=== PATIENT | female | born 1945 | race Two or more races ===

== ENCOUNTER 2017-01-03 15:04 | Inpatient (IN) | payer OTHER ==
--- NOTE | ~2017-01-03 | EKG ---
PATIENT: MITCHELL IYER UNIT #: [id number] Ventricular Rate: 111 BPM Atrial Rate: 111 BPM P-R Interval: 184 ms QRS Duration: 84 ms Q-T Interval: 316 ms QTC Calculation(Bezet): 429 ms P Holloway: 60 degrees Calculated R Holloway: -38 degrees Calculated T Holloway: 64 degrees Diagnosis Line: Sinus tachycardia Diagnosis Line: Left axis deviation Diagnosis Line: Otherwise normal ECG Diagnosis Line: No previous ECGs available Diagnosis Line: Confirmed by FAMILIA FOX MD ([id number]) on 01/04/2017 Diagnosis Line: 3:31:07 PM INTERPRETING MD: DOMINIQUE MONTANA
--- NOTE | ~2017-01-03 | HP ---
Unit #: [id number] #: [id number] Patient: MITCHELL IYER [id number] [address] [place], [place] [address] [id number] I MR#: [id number] NAME: MITCHELL IYER ROOM: 23231 Age: 72 Sex: F Admission Date: 01/03/2017 : 1945 Attending Physician: Cesario Bee M.D. HISTORY AND PHYSICAL CHIEF COMPLAINT Shortness of breath. HISTORY OF PRESENT ILLNESS The patient is a 72-year-old female with a history of asthma and questionable heart disease brought to the emergency room complaining of shortness of breath. The patient has been short of breath for the last three days associated with a nonproductive cough. The patient also complains of headache. She denies any nausea or vomiting. The patient was found to be hypoxic with respiratory distress at 80% on room air. The patient is saturating 98% on three liters of nasal cannula. The patient had a chest x-ray that shows an infiltrate in the left lateral and the right lower lobe and is being admitted for pneumonia. The patient speak Johan, and the history is limited. History is obtained by speaking to the ER physician and the anodize machine operator done by the ER physician. PAST MEDICAL HISTORY Asthma. PAST SURGICAL HISTORY None. HOME MEDICATIONS None. Patient moved from [place], [place], and prior to that the patient was on medications. ALLERGIES No known drug allergies. SOCIAL HISTORY No history of smoking, alcohol, or any illicit drug abuse. Patient has been in the [place] for the last seven days. No recent travel history. FAMILY HISTORY Reviewed and none. PHYSICAL EXAMINATION GENERAL: Patient is lying in bed not in acute distress. VITAL SIGNS: Temperature 99.3, pulse 115, respirations 17, blood pressure 145/76, and saturating 98% on 3 liters of nasal cannula. HEENT: Head atraumatic, normocephalic. Pupils equal, round, and reactive to light and accommodation. Extraocular movements are intact. NECK: Supple. LUNGS: Decreased air entry at the bases. Positive for rales and rhonchi. Unit #: [id number] #: [id number] Patient: MITCHELL IYER HEART: (1) rhythm, tachycardic. ABDOMEN: Soft. Positive bowel sounds. EXTREMITIES: No cyanosis, no clubbing. NEUROLOGIC: Alert, awake, and oriented. No gross focal motor deficit. DIAGNOSTIC STUDIES LABORATORY: Urinalysis shows negative leukocyte esterase and negative nitrites. Sodium 127, potassium 3.4, chloride 93, bicarb 26, glucose 108, BUN 11, creatinine 0.9, calcium 7.9, and alkaline phosphatase 96. Lactic acid 0.9. WBC 11.2, hemoglobin 13.1, hematocrit 40, and platelets 403,000. IMAGING: Chest x-ray shows infiltrate or atelectasis at the right lower lobe, left lateral lobe infiltrate, and pulmonary edema. CARDIOLOGY: EKG shows sinus tachycardia at a rate of 111 beats per minute and left axis deviation with a QTc of 429. ASSESSMENT 1. Pneumonia. 2. Hypoxia. 3. Hyponatremia. 4. Hypokalemia. 5. Pulmonary edema. PLAN Admit the patient to inpatient with telemetry. Patient will receive IV antibiotics with Rocephin and Zithromax. Patient will get dialysis with Lasix 40 mg IV daily. Check the BNP and sputum cultures, and repeat the CBC and BMP in the morning. Will have the ABG, echocardiogram, and troponin as not done. Further recommendations will follow as more lab results are available. Dictated by Matty West TD: 01/03/2017 20:53 JOB #: [id number] HISTORY AND PHYSICAL Page 1 of 1 X KUMAR PEÑA MD X HISTORY AND PHYSICAL
--- NOTE | ~2017-01-03 | CT57 ---
[facility] A Service of [facility] & [facility] RADIOLOGY TEXT RESULTS PATIENT: MITCHELL IYER LOCATION: [facility] - : 43 UNIT #: [id number] AGE: [address]: Redd Olvera MD SEX: F ORDER DR: [id number] [facility] [address]. [place], [place] [address] [id number] I MR#: [id number] Acc #: [id number] NAME: MITCHELL IYER : 1945 SEX: F STUDY DATE/TIME: 01/05/2017 8:34 UNIT: [address] ROOM: [facility] STUDY DESCRIPTION: CT Chest Wo Cont Attending Physician: Redd Olvera M.D. Ordering Physician: Redd Olvera M.D. Primary Care Physician: Generic Doctor Not In System MEDICAL IMAGING REPORT This report is preliminary unless electronic signature is present EXAM CT chest without contrast HISTORY Shortness of air and cough for [address] exam was performed with one or more of the following radiation dose reduction techniques: automatic exposure control, adjustment of mA and/or kV according to patient size, and iterative reconstruction. FINDINGS CT chest without contrast is compared to chest x-ray 01/03/2017. There is increased dense consolidation in the posterior left upper lobe and in the lingula as compared to the prior chest x-ray, and there is probably stable moderately dense atelectasis or infiltrate in the inferior right lower lobe. Exam sensitivity is limited by motion. Moderately severe elevation of the right hemidiaphragm corresponds to finding on chest x-ray. Small calcified bilateral hilar nodes and lower mediastinal calcified nodes. IMPRESSION 1. Progressive dense consolidation in the posterior left upper lobe and in the lingula as compared to chest x-ray 01/03/2017. Although nonspecific this could be due to progressive pneumonia. Continued short-term radiographic followup is recommended after appropriate assessment and treatment. 2. Moderate atelectasis or infiltrate in the inferior right lower lobe is similar to the prior chest x-ray. 3. Moderately severe elevation of the right hemidiaphragm. 4. No pleural effusions or adenopathy. 5. Sensitivity is limited by motion. [facility] A Service of [facility] & [facility] RADIOLOGY TEXT RESULTS PATIENT: MITCHELL IYER LOCATION: [facility] 303-01 : [birth year] UNIT #: [id number] AGE: [address]: Redd Olvera MD SEX: F ORDER DR: Dictated by... Tello Bonilla M.D. THIS IS AN ELECTRONICALLY VERIFIED REPORT Tello Bonilla M.D. at 01/06/2017 1:59 PM DFCande/smiley TD: 01/05/2017 22:03 JOB #: [id number] MEDICAL IMAGING REPORT Page 1 of 1 COPY
--- NOTE | ~2017-01-03 | A ---
[facility] Nutrition Therapy DATE: 01/04/17 Patient: MITCHELL IYER Physician: KEVYN Address: [address] [place] [address] Room/Bed: [address] [place] [address], Zip: [place] [address] Admit Date: 01/03/17 Date of : [birth year] Height: 5 0 Weight: 134 61.1 NUTRITIONAL ASSESSMENT: REASON: 5 NUTRITION RISK PT RE: WEIGHT LOSS, ALSO CONSULT RE: WEIGHT LOSS PT IS 62 Y.O. FEMALE ADMITTED FOR PNE PMH: ASTHMA, ?HEART DISEASE Anthropometrics: 5'0", WT: 136# (BEDSIDE) (62 KG), BMI: 26.6 Labs: CA+:8.1, GFR: 49.4, NA+:133 Meds: NACL I/O & Bowel function: 490/1000 Skin Integrity: NO KNOWN SKIN ISSUES Estimated Nutrition Needs: INCREASED NEEDS 2' WEIGHT LOSS NOTED + CURRENT CLINICAL CONDITION Assessment: CHART REVIEWED AND EVENTS NOTED. PT SEEN FOR 5 NUTRITION RISK PT RE: WEIGHT LOSS, ALSO CONSULT RECEIVED. PT SPEAKS MODE, RD WAS ABLE TO COMMUNICATE W/ GRANDSON WHO ALSO SPEAKS GABONESE. MARK REPORTS PT'S PO INTAKE AND APPETITE HAS BEEN FAIR/NORMAL PRIOR TO ADMIT. ALSO REPORTED IS PT LOSING ~50# PAST 3-4 MONTHS? 2' HAVING PHYSICAL THERAPY ON SHOULDER. GRANDMARK ADDS PT'S UBW IS ~180#. THIS RD ENCOURAGED ADEQUATE KCAL, PROTEIN AND FLUID INTAKE, PT AGREED TO ENSURE SHAKE + ENSURE PUDDING DAILY. PT REPORTED NO DIET QUESTIONS AT THIS TIME. RD TO FOLLOW. PER RN AND CHART, ?PLANS IN PLACE FOR PT TO D/C HOME 01/05/17. Dx: RECENT UNINTENTIONAL WEIGHT LOSS R/T PHYSICAL THERAPY PER ELVIS AEB ~50# WEIGHT LOSS IN PAST 3-4 MONTHS?. 2. ALTERED NUTRIENT UTILIZATION R/T PMH AEB NEED FOR THERAPEUTIC DIET ORDER. Intervention: 1. HEALTHY HEART DIET 2. RD CONSULT 3. ENSURE SHAKE + ENSURE PUDDING DAILY Monitoring, Evaluation and Goals: 1. ORAL INTAKE; CONSUME/TOLERATE >50% OF MEALS AND SUPPLEMENTS 2. WEIGHTS; PREVENT FURTHER UNINTENTIONAL WEIGHT LOSS 3. LABS; WNL MONITOR: [facility] Nutrition Therapy DATE: 01/04/17 Patient: MITCHELL IYER Physician: KEVYN Address: [address] [facility] Room/Bed: [address] [place] [address], Zip: [place] [address] Admit Date: 01/03/17 Date of : [birth year] Height: 5 0 Weight: 134 61.1 -PO INTAKE/APPETITE -WEIGHTS -SUPPLEMENT INTAKE Recommendations: 1. PLEASE ORDER VANILLA ENSURE SHAKE W/LUNCH + VANILLA ENSURE PUDDING W/DINNER MEAL DAILY 2. CONTINUE CURRENT DIET ORDER ABOVE 2' PMH 3. ENCOURAGE PO AND SUPPLEMENT INTAKE 4. CONSIDER ADDING MVI W/MINERAL DAILY RD WILL F/U PER PROTOCOL PT IS MILDLY COMPROMISED Respectfully, EM WINTER MS, RD, LD [facility] Psychiatric cc: client file
--- NOTE | ~2017-01-03 | DS ---
Unit #: [id number] #: [id number] Patient: MITCHELL IYER [id number] [address] [place], [place] [address] [id number] I MR#: [id number] NAME: MITCHELL IYER ROOM: 303 Age: 72 Sex: F Admission Date: 01/03/2017 : 1945 Discharge Date: 01/08/2017 Attending Physician: Redd Olvera M.D. Primary Care Physician: Generic Doctor Not In System DISCHARGE SUMMARY REASON FOR ADMISSION Shortness of breath. HISTORY OF PRESENT ILLNESS/HOSPITAL COURSE The patient is a 72-year-old female, originally from [facility], who recently moved to the [facility] several weeks ago, who presented accompanied by family members secondary to difficulty with breathing, nonproductive cough for the past several days. She was noted to be acutely hypoxic in the emergency room at approximately 80% on room air. Subsequently, she was placed on 3 L O2 nasal cannula and subsequently placed on telemetry floor. Initially, she was diagnosed as acute hypoxic respiratory failure as well as asthma exacerbation, although the patient stated that she did not take any medications prior to day of admission. She was seen and evaluated while on telemetry floor. She underwent routine laboratory studies including blood cultures, which did not yield any acute bacterial growth. Initial urinalysis was also negative. Chest x-ray initially showed no acute process but secondary to acute hypoxia, this prompted a CT chest to be done on 01/05/2017. CT chest showed progressive dense consolidation in the posterior left upper lobe as well as moderate atelectasis versus infiltrate in the inferior right lower lobe. Secondary to infiltrate possibly in the right lower lobe consideration for underlying aspiration was made. This prompted a Speech Therapy consultation. Speech Therapy recommended dental soft diet with thin liquids. This was appropriately discussed with the patient via farebox repairer as well as family members. The patient was gradually weaned off O2. She did have persistent hypoxia, but eventually she was weaned to room air. Secondary to morbid obesity as well as dyspnea, the patient underwent 2D echocardiogram, which did show grade 1 diastolic dysfunction as well as moderate pulmonary hypertension. Secondary to pulmonary hypertension, this prompted a consultation to Dr. Olmos and associates, who did recommend outpatient evaluation for sleep apnea. They also recommended an outpatient CT chest to ensure resolution of left upper lobe as well as right lower lobe pneumonia. At this point in time, the patient will be prescribed for Levaquin, Unit #: [id number] #: [id number] Patient: MITCHELL IYER prednisone, as well as albuterol. She will be discharged home. Family members told me the patient has a new family physician to which they will follow up within 7 to 10 days. Overall, her prognosis depends on her ability to comply. It should be noted while she was here in the hospital that on numerous occasions, she removed her oxygen and stated that she was fine without it. Also note that the patient's hemoglobin A1c was 6.2% and therefore she likely represents borderline type 2 diabetes. She will be discharged on no medications at the present time, but long-term evaluation and/or care will be deferred to primary care physician. At this point in time, the patient is medically stable for discharge. Another O2 evaluation will be done prior to discharge and assuming that is similar to previous, the patient will be discharged home in stable condition. FINAL DISCHARGE DIAGNOSES 1. Acute hypoxic respiratory failure. 2. Questionable asthma exacerbation, details are unclear. 3. Left upper lobe pneumonia. 4. Right lower lobe pneumonia versus atelectasis. 5. Dysphagia. 6. Type 2 diabetes with hemoglobin A1c of 6.2%. 7. Pulmonary hypertension. 8. Likely obstructive sleep apnea with outpatient evaluation pending. 9. Anemia. Baseline hemoglobin is between 10 to 11 likely representing chronic iron deficiency. FINAL DISCHARGE MEDICATIONS Levaquin 750 mg p.o. daily x10 days. Prednisone 40 mg p.o. daily x5 days. Albuterol MDI 1 to 2 puffs q.6 p.r.n. DISCHARGE CONDITION Stable. DISCHARGE DISPOSITION Home. Dictated by... Redd Olvera M.D. ANAND/joshua TD: 01/10/2017 08:18 JOB #: [id number] DISCHARGE SUMMARY Page 1 of 1 X Redd Olvera MD DISCHARGE SUMMARY
--- NOTE | ~2017-01-03 | CR72 ---
[facility] A Service of [facility] & [facility] RADIOLOGY TEXT RESULTS PATIENT: MITCHELL IYER LOCATION: [facility] 303- : 43 UNIT #: [id number] AGE: [address]: Redd Olvera MD SEX: F ORDER DR: [id number] [facility] [address] [facility]. [place], [place] [address] [id number] I MR#: [id number] Acc #: [id number] NAME: MITCHELL IYER : 1945 SEX: F STUDY DATE/TIME: 01/03/2017 17:06 UNIT: [address] ROOM: [facility] STUDY DESCRIPTION: CR Chest Single View Portable Attending Physician: Redd Olvera M.D. Ordering Physician: Cesario Bee M.D. Primary Care Physician: Generic Doctor Not In System MEDICAL IMAGING REPORT This report is preliminary unless electronic signature is present EXAM Portable chest 01/03/2017 HISTORY Cough, shortness breath and headache for 3 days, asthma. FINDINGS There is no prior chest radiograph for comparison. Heart is normal in size. There is elevation right hemidiaphragm with infiltrate or atelectasis right lower lobe. Ill-defined infiltrate left lower lobe laterally. Mild pulmonary edema. No pneumothorax. Dictated by... Ilya Lawton M.D. THIS IS AN ELECTRONICALLY VERIFIED REPORT Ilya Lawton M.D. at 01/05/2017 6:18 AM KRT/to TD: 01/04/2017 12:46 JOB #: [id number] MEDICAL IMAGING REPORT Page 1 of 1 COPY
--- NOTE | ~2017-01-03 | CO ---
Unit #: [id number] #: [id number] Patient: MITCHELL IYER [id number] [address] [address] [id number] I MR#: [id number] NAME: MITCHELL IYER ROOM: 303 Age: 72 Sex: F Admission Date: 01/03/2017 : 1945 Attending Physician: Redd Olvera M.D. Primary Care Physician: Generic Doctor Not In System CONSULTATION REPORT INDICATION FOR CONSULT Pneumonia and pulmonary hypertension. HISTORY OF PRESENT ILLNESS The patient presented to the hospital with several days of increasing shortness of breath and productive cough. She was found to be hypoxic on admission requiring supplemental oxygen to keep saturation greater than 90% and was admitted to the hospital for further management. Workup during her inpatient stay demonstrated a CT showing a left lower lobe pneumonia and an echo with an RVSP of 51. She reports subjective improvement in her breathing since admission, but still has a productive cough. At home prior to admission, she reports excessive daytime sleepiness. PAST MEDICAL HISTORY Positive for asthma. MEDICATIONS The patient was on no home medications prior to admission. She is currently on inpatient antibiotics include Rocephin and azithromycin. ALLERGIES No known drug allergies. SOCIAL HISTORY Negative for tobacco abuse. FAMILY HISTORY Noncontributory. PHYSICAL EXAMINATION VITAL SIGNS: Temperature 98.9, respirations 18, blood pressure 173/95, saturations 95% on supplemental O2, pulse 108. GENERAL: The patient is resting comfortably, in no acute distress, in hospital bed on supplemental nasal oxygen. HEENT: Pupils are equal and reactive to light stimulus. Extraocular motion intact. Conjunctivae normal. Oral mucosa, pink and moist without lesion. Tongue midline without deviation or protrusion. NECK: Trachea midline. No cervical or supraclavicular adenopathy. LUNGS: Diffuse wheezes and scattered rhonchi bilaterally. No accessory muscle use with respirations. CARDIAC: Regular rhythm. S1, S2 auscultated without murmur. ABDOMEN: Soft, nontender, nondistended. Positive bowel sounds. No hepatomegaly. Unit #: [id number] #: [id number] Patient: MITCHELL IYER EXTREMITIES: Moves all 4 extremities with good strength and tone. No cyanosis, clubbing, or edema. Distal pulses intact. SKIN: Cool and dry. PSYCHIATRIC: Calm affect. DIAGNOSTIC STUDIES IMAGING STUDIES: CT was personally visualized, it shows left lower lobe pneumonia. CARDIOVASCULAR STUDIES: Echo showed EF of 55%. RVSP of 51. LABORATORY RESULTS: BMP within normal limits with the exception of glucose of 118 and calcium 7.5. CBC showed white count 17, hematocrit 33, platelets 429. IMPRESSION 1. Acute hypoxic respiratory failure. 2. Pneumonia. 3. Pulmonary hypertension. PLAN To continue O2 wean as tolerated. Continue aggressive pulmonary toilet. Continue steroids. Continue bronchodilators. Continue DVT prophylaxis. Continue antibiotics complete course. She will need a repeat CT as an outpatient to document clearance of her pneumonia. With regard to her pulmonary hypertension, we would consider repeating her echo once she has recovered from the pneumonia. The pulmonary hypertension may represent just acute hypoxic response to her pneumonia and we would consider an outpatient PSG. Dictated by... Marcus Fuentes M.D. CARLI/joshua TD: 01/10/2017 02:36 JOB #: [id number] CONSULTATION REPORT Page 1 of 1 X Marcus Fuentes MD X CONSULTATION REPORT
[2017-01-03 17:28] LABS: BASOPHIL% 0.3 % (0-2.5); EOSINOPHIL# 0.1 X10e3 (0-0.7); EOSINOPHIL% 0.9 % (0.0-7.0); HEMOGLOBIN 13.1 gm/dL (12.0-16.0); LYMPHOCYTE% 17.6 % (17.0-45.0); MEAN CELL VOLUME 89.4 FL (83-96); MEAN CORPUSCULAR HEMOGLOBIN 29.3 PG (28-34); MEAN CORPUSCULAR HGB CONC 32.8 g/dL (30-36); NEUTROPHIL# 8.1 X10e3 (1.5-7.1); NEUTROPHIL% 72.2 % (40-75); PLATELET COUNT 403 X10e3 (140-420); RED BLOOD COUNT 4.48 X10e (3.90-5.30); RED CELL DISTRIBUTION WIDTH 13.2 % (11.0-15.5); WHITE BLOOD COUNT 11.2 X10e3 (4.0-10.5)
[2017-01-03 17:34] LABS: DIFF IND NO
[2017-01-03 17:42] LABS: URINE SOURCE CLEAN CATCH
[2017-01-03 17:43] LABS: ALBUMIN SERUM 3.7 g/dL (3.5-5.0); BILIRUBIN, DIRECT 0.2 mg/dL (0.0-0.2); BILIRUBIN,TOTAL 1.2 mg/dL (0.2-2.0); BUN/CREATININE RATIO 12.22; CALCIUM SERUM 7.9 mg/dL (8.4-10.2); CREATININE SERUM 0.9 mg/dL (0.6-1.4); POTASSIUM 3.4 mmol/L (3.5-5.1); PROTEIN TOTAL SERUM 7.7 g/dL (6.0-8.3)
[2017-01-03 17:51] LABS: URINE APPEARANCE CLEAR; URINE BILIRUBIN NEG (NEG); URINE BLOOD NEG (NEG); URINE COLOR YELLOW; URINE GLUCOSE NEG (NEG); URINE KETONE NEG (NEG); URINE LEUKOCYTE ESTERASE NEG (NEG); URINE NITRATE NEG (NEG); URINE PH 7.5 (5-8); URINE PROTEIN NEG (NEG); URINE SPECIFIC GRAVITY 1.009 (1.003-1.035)
[2017-01-03 17:59] LABS: CULTURE INDICATED? NO
[2017-01-03 19:52] LABS: ARTERIAL BLD GAS O2 SATURATION 92.4 % (90.0-100.0); ARTERIAL BLOOD GAS CARBOXY HB 0.9 %sat (0.0-9.0); ARTERIAL BLOOD GAS HCO3 24.7 mmol/L; ARTERIAL BLOOD GAS MET HB 0.8 %sat (0.0-2.0); ARTERIAL BLOOD GAS PCO2 39.7 mmHg (35.0-45.0); ARTERIAL BLOOD GAS pH 7.402 (7.350-7.450)
[2017-01-03 19:53] LABS: ARTERIAL BLOOD GAS ART SITE LEFT BRACHIAL; ARTERIAL BLOOD GAS DELIVERY NASAL CANNULA; ARTERIAL BLOOD GAS PO2 68.1 mmHg (80.0-100); ARTERIAL DRAW? YES
[2017-01-04 08:46] LABS: BASOPHIL% 0.5 % (0-2.5); EOSINOPHIL# 0.1 X10e3 (0-0.7); EOSINOPHIL% 1.3 % (0.0-7.0); HEMATOCRIT 38.9 % (35.0-45.0); HEMOGLOBIN 12.9 gm/dL (12.0-16.0); LYMPHOCYTE# 1.2 X10e3 (1.0-3.5); LYMPHOCYTE% 11.3 % (17.0-45.0); MEAN CELL VOLUME 89.3 FL (83-96); MEAN CORPUSCULAR HEMOGLOBIN 29.6 PG (28-34); MEAN CORPUSCULAR HGB CONC 33.2 g/dL (30-36); MEAN PLATELET VOLUME 6.7 FL (6.5-11.5); MONOCYTE% 9.3 % (3.0-12.0); NEUTROPHIL% 77.6 % (40-75); PLATELET COUNT 390 X10e3 (140-420); RED BLOOD COUNT 4.35 X10e (3.90-5.30); RED CELL DISTRIBUTION WIDTH 13.6 % (11.0-15.5); WHITE BLOOD COUNT 10.3 X10e3 (4.0-10.5)
[2017-01-04 08:52] LABS: DIFF IND NO
[2017-01-04 09:17] LABS: CALCIUM SERUM 8.1 mg/dL (8.4-10.2); CREATININE SERUM 1.1 mg/dL (0.6-1.4); GLOM FILT RATE Estimated 49.4 mL/min (>60); MAGNESIUM 1.6 mg/dL (1.6-3.0)
[2017-01-05 05:39] LABS: BASOPHIL# 0.1 X10e3 (0-0.3); BASOPHIL% 0.8 % (0-2.5); EOSINOPHIL# 0.2 X10e3 (0-0.7); EOSINOPHIL% 3.2 % (0.0-7.0); HEMATOCRIT 35.5 % (35.0-45.0); HEMOGLOBIN 11.6 gm/dL (12.0-16.0); LYMPHOCYTE# 1.7 X10e3 (1.0-3.5); LYMPHOCYTE% 26.7 % (17.0-45.0); MEAN CELL VOLUME 90.1 FL (83-96); MEAN CORPUSCULAR HEMOGLOBIN 29.3 PG (28-34); MEAN CORPUSCULAR HGB CONC 32.5 g/dL (30-36); MEAN PLATELET VOLUME 7.3 FL (6.5-11.5); MONOCYTE# 0.8 X10e3 (0-1.0); MONOCYTE% 11.7 % (3.0-12.0); NEUTROPHIL# 3.7 X10e3 (1.5-7.1); NEUTROPHIL% 57.6 % (40-75); PLATELET COUNT 372 X10e3 (140-420); RED BLOOD COUNT 3.94 X10e (3.90-5.30); RED CELL DISTRIBUTION WIDTH 13.5 % (11.0-15.5); WHITE BLOOD COUNT 6.5 X10e3 (4.0-10.5)
[2017-01-05 05:47] LABS: DIFF IND NO
[2017-01-05 06:29] LABS: BUN/CREATININE RATIO 15.55; CALCIUM SERUM 7.7 mg/dL (8.4-10.2); CREATININE SERUM 0.9 mg/dL (0.6-1.4); POTASSIUM 3.6 mmol/L (3.5-5.1)
[2017-01-06 06:01] LABS: HEMATOCRIT 36.7 % (35.0-45.0); MEAN CELL VOLUME 89.5 FL (83-96); MEAN CORPUSCULAR HEMOGLOBIN 29.2 PG (28-34); MEAN CORPUSCULAR HGB CONC 32.7 g/dL (30-36); RED BLOOD COUNT 4.1 X10e (3.90-5.30); RED CELL DISTRIBUTION WIDTH 13.4 % (11.0-15.5)
[2017-01-06 06:16] LABS: WHITE BLOOD COUNT 12.4 X10e3 (4.0-10.5)
[2017-01-06 06:48] LABS: BUN/CREATININE RATIO 11.11; CALCIUM SERUM 8.2 mg/dL (8.4-10.2); CREATININE SERUM 0.9 mg/dL (0.6-1.4); POTASSIUM 3.2 mmol/L (3.5-5.1)
[2017-01-07 06:27] LABS: HEMATOCRIT 33.5 % (35.0-45.0); HEMOGLOBIN 10.7 gm/dL (12.0-16.0); MEAN CELL VOLUME 89.2 FL (83-96); MEAN CORPUSCULAR HEMOGLOBIN 28.6 PG (28-34); MEAN CORPUSCULAR HGB CONC 32.1 g/dL (30-36); RED BLOOD COUNT 3.75 X10e (3.90-5.30); RED CELL DISTRIBUTION WIDTH 13.7 % (11.0-15.5)
[2017-01-07 06:30] LABS: WHITE BLOOD COUNT 21.1 X10e3 (4.0-10.5)
[2017-01-07 07:24] LABS: BUN/CREATININE RATIO 16.66; CREATININE SERUM 0.6 mg/dL (0.6-1.4); GLOM FILT RATE Estimated 89.8 mL/min (>60); MAGNESIUM 2.7 mg/dL (1.6-3.0); POTASSIUM 3.9 mmol/L (3.5-5.1)
[2017-01-08 06:44] LABS: HEMATOCRIT 33.3 % (35.0-45.0); HEMOGLOBIN 10.9 gm/dL (12.0-16.0); MEAN CELL VOLUME 89.4 FL (83-96); MEAN CORPUSCULAR HEMOGLOBIN 29.1 PG (28-34); MEAN CORPUSCULAR HGB CONC 32.6 g/dL (30-36); MEAN PLATELET VOLUME 7.1 FL (6.5-11.5); RED BLOOD COUNT 3.73 X10e (3.90-5.30); RED CELL DISTRIBUTION WIDTH 13.9 % (11.0-15.5); WHITE BLOOD COUNT 17.4 X10e3 (4.0-10.5)
[2017-01-08 06:57] LABS: CALCIUM SERUM 7.5 mg/dL (8.4-10.2); CREATININE SERUM 0.7 mg/dL (0.6-1.4); GLOM FILT RATE Estimated 85.4 mL/min (>60); MAGNESIUM 2.1 mg/dL (1.6-3.0); POTASSIUM 3.8 mmol/L (3.5-5.1)
[2017-01-08] MEDS ORDERED: PROAIR HFA8.5 GM INH (13:56)
[2017-01-08] MEDS ORDERED: PREDNISONE10 MG PO (13:57)
[2017-01-08] MEDS ORDERED: LEVAQUIN750 MG PO (13:59)
== END 2017-01-08 16:27 | disposition home or self-care (01) | DRG 189 ==
LOC: CED 15:04 → C3A PCU 19:00 → CEDOF 19:00 → CED 19:48 → CEDOF 19:48 → C3A PCU 22:01
PROVIDERS: Emergency Medicine; Family Medicine; Nurse Practitioner
PROC: B246YZZ Ultrasonography of Right and Left Heart using Other Contrast (ICD-10-PCS; principal; 2017-01-03)
DX: J96.01 Acute respiratory failure with hypoxia (principal); J18.9 Pneumonia, unspecified organism; I27.2 Other secondary pulmonary hypertension; J45.901 Unspecified asthma with (acute) exacerbation; E87.1 Hypo-osmolality and hyponatremia; E66.01 Morbid (severe) obesity due to excess calories; E09.9 Drug or chemical induced diabetes mellitus without complications; R13.10 Dysphagia, unspecified; G47.33 Obstructive sleep apnea (adult) (pediatric); E87.6 Hypokalemia; Z68.27 Body mass index [BMI] 27.0-27.9, adult; D50.9 Iron deficiency anemia, unspecified; D72.829 Elevated white blood cell count, unspecified; T38.0X5A Adverse effect of glucocorticoids and synthetic analogues, initial encounter
CPT/HCPCS: 36415; 36600; 71010; 71250; 80048; 80076; 81003; 82803; 82947; 83036; 83605; 83735; 83880; 84443; 84484; 85025; 85027; 87040; 92526; 92610; 93005; 93306; 94640; 94760; 96360; 97162; 99285; J0456; J0696; J1650; J1815; J1940; J2920; J3475